=== PATIENT | male | born 1985 | race Caucasian/White ===

== ENCOUNTER 2019-04-16 12:58 | Emergency (ER) | payer SELFPAY, OTHER ==
[2019-04-16] MEDS: IBUPROFEN 800 MG TAB PO (13:48)
== END 2019-04-16 15:08 | disposition home or self-care (01) ==
LOC: FTE 12:58
DX: S99.912A Unspecified injury of left ankle, initial encounter (principal); S00.81XA Abrasion of other part of head, initial encounter; W18.39XA Other fall on same level, initial encounter; Y92.9 Unspecified place or not applicable
CPT/HCPCS: 73610; 99283-25